=== PATIENT | female | born 1975 | race Caucasian/White ===

== ENCOUNTER 2018-12-17 10:12 | Emergency (ER) | payer OTHER ==
[~2018-12-17] VITALS: Ht 154.9 cm; Wt 56.7 kg
[~2018-12-17 10:12] MED LIST: AMOXICILLIN500 M1 PO; ASA5UEC; CITRATE OF MAG296 ML PO; COLACE100 MG PO; IBUPROFEN 800800 M1 PO; NAPROSYN500 MG PO; NOHOMEMEDICATIONS; NORCO 5-325 TA1 EACH PO; PENICILLIN V P500 MG PO; PERCOCET 5-3251 EACH PO; VALIUM5 MG PO
[2018-12-17] MEDS ORDERED: NORCO 5-325 TA1 EACH PO (11:35)
[2018-12-17 12:06] VITALS: BP 125/78
== END 2018-12-17 12:08 | disposition home or self-care (01) ==
LOC: ER 10:12
DX: S60.222A Contusion of left hand, initial encounter (principal); M25.562 Pain in left knee; M54.9 Dorsalgia, unspecified; M25.511 Pain in right shoulder; F17.210 Nicotine dependence, cigarettes, uncomplicated; W00.0XXA Fall on same level due to ice and snow, initial encounter; Y93.89 Activity, other specified; Y92.89 Other specified places as the place of occurrence of the external cause; Y99.8 Other external cause status